=== PATIENT | female | born 1995 | race Caucasian/White ===

== ENCOUNTER 2019-05-02 23:24 | Emergency (ER) | payer BC ==
--- NOTE | 2019-05-02 23:43 | EDM.PDOC ---
<Noble Cabrera - Last Filed: 05/03/19 00:04> ED HPI GENERAL MEDICAL PROBLEM - General Chief Complaint: Respiratory Problem Stated Complaint: PT HAS PNEUMONIA Time Seen by Provider: 05/02/19 23:41 Source of Information: Reports: Patient History Limitations: Reports: No Limitations - History of Present Illness INITIAL COMMENTS - FREE TEXT/NARRATIVE: HISTORY AND PHYSICAL: History of present illness: Patient is a 24-year-old female presents to the ED with concern of fever. she states that she has been having fever for the past 3 days. She has had a cough and feels some pain in her chest.She denies nausea, vomiting, shortness of breath, abdominal pain, diarrhea, sore throat, ear pain. Review of systems: As per history of present illness and below otherwise all systems reviewed and negative. Past medical history: As per history of present illness and as reviewed below otherwise noncontributory. Surgical history: As per history of present illness and as reviewed below otherwise noncontributory. Social history: No reported history of drug or alcohol abuse. Family history: As per history of present illness and as reviewed below otherwise noncontributory. Physical exam: General: Patient sitting comfortably in no acute distress and nontoxic appearing HEENT: Atraumatic, normocephalic, pupils reactive, negative for conjunctival pallor or scleral icterus, mucous membranes moist, throat clear, neck supple, nontender, trachea midline. No meningeal signs. Lungs: Diminished throughout all lung sanchez, chest nontender. Heart: S1S2, regular, negative for clicks, rubs, or overt murmur. Abdomen: Soft, nondistended, nontender. Negative for masses or hepatosplenomegaly. Negative for costovertebral tenderness. No rigidity, rebound , guarding. Pelvis: Stable nontender. Genitourinary: Deferred. Rectal: Deferred. Extremities: Atraumatic, negative for cords or calf pain. Neurovascular unremarkable. Neuro: Awake, alert, oriented. Cranial nerves II through XII unremarkable. Cerebellum unremarkable. Motor and sensory unremarkable throughout. Exam nonfocal. Notes: Diagnostics: Chest x-ray, CBC, CMP, UA, blood culture x 2 Therapeutics: Tylenol DuoNeb Prescriptions: Impression: Plan: [] Definitive disposition and diagnosis as appropriate pending reevaluation and review of above. generalized Pain Score (Numeric/FACES): 8 - Related Data Allergies Allergy/AdvReac Type Severity Reaction Status Date / Time No Known Allergies Allergy Verified 05/02/19 23:45 Home Meds: Home Meds . [No Known Home Meds] 05/02/19 [History] Past Medical History - Past Health History Medical/Surgical History: Denies Medical/Surgical History - Past Surgical History HEENT Surgical History: Reports: Oral Surgery (wisdom teeth) Social & Family History - Family History Family Medical History: Noncontributory - Caffeine Use Caffeine Use: Reports: Soda ED ROS GENERAL - Review of Systems Review Of Systems: ROS reveals no pertinent complaints other than HPI. ED EXAM, GENERAL - Physical Exam Exam: See Below (see dictation) Course - Vital Signs Last Recorded V/S: Last Vital Signs Temp 99.7 F 05/03/19 03:05 Pulse 113 H 05/03/19 03:05 Resp 16 05/03/19 03:05 BP 111/72 05/03/19 03:05 Pulse Ox 96 05/03/19 03:05 - Orders/Labs/Meds Orders: Active Orders 24 hr Category Date Time Status RT Aerosol Therapy [RC] ASDIRECTED Care 05/02/19 23:52 Active CULTURE BLOOD [BC] Stat Lab 05/03/19 00:53 Received CULTURE BLOOD [BC] Stat Lab 05/03/19 01:02 Received CULTURE STREP A CONFIRMATION [RM] Stat Lab 05/03/19 00:16 Results STREP SCRN A RAPID W CULT CONF [RM] Stat Lab 05/03/19 00:16 Results Sodium Chloride 0.9% [Normal Saline] 1,000 ml Med 05/03/19 01:30 Active IV STAT Blood Culture x2 Reflex Set [OM.PC] Stat Oth 05/03/19 00:03 Ordered Medication Orders Sodium Chloride (Normal Saline) 1,000 mls @ 125 mls/hr IV STAT RASHAWN Last Admin: 05/03/19 01:34 Dose: 125 mls/hr Labs: Laboratory Tests 05/03/19 05/03/19 05/03/19 Range/Units 00:20 00:20 00:20 WBC 7.49 (4.0-11.0) K/uL RBC 4.69 (4.30-5.90) M/uL Hgb 14.8 (12.0-16.0) g/dL Hct 44.3 (36.0-46.0) % MCV 94.5 (80.0-98.0) fL MCH 31.6 (27.0-32.0) pg MCHC 33.4 (31.0-37.0) g/dL RDW Std Deviation 45.6 (28.0-62.0) fl RDW Coeff of Naila 13 (11.0-15.0) % Plt Count 137 L (150-400) K/uL MPV 11.20 (7.40-12.00) fL Neut % (Auto) 72.2 (48.0-80.0) % Lymph % (Auto) 17.5 (16.0-40.0) % Ray % (Auto) 10.0 (0.0-15.0) % Eos % (Auto) 0.0 (0.0-7.0) % Baso % (Auto) 0.3 (0.0-1.5) % Neut # (Auto) 5.4 (1.4-5.7) K/uL Lymph # (Auto) 1.3 (0.6-2.4) K/uL Ray # (Auto) 0.8 (0.0-0.8) K/uL Eos # (Auto) 0.0 (0.0-0.7) K/uL Baso # (Auto) 0.0 (0.0-0.1) K/uL Nucleated RBC % 0.0 /100WBC Nucleated RBCs # 0 K/uL Lactate 2.0 (0.20-2.00) mmol/L Sodium 136 (136-145) mmol/L Potassium 3.4 L (3.5-5.1) mmol/L Chloride 100 (98-107) mmol/L Carbon Dioxide 22.4 (21.0-32.0) mmol/L BUN 10 (7.0-18.0) mg/dL Creatinine 0.9 (0.6-1.0) mg/dL Est Cr Clr Drug Dosing 96.84 mL/min Estimated GFR (MDRD) > 60.0 ml/min Glucose 123 H (74-106) mg/dL Calcium 9.0 (8.5-10.1) mg/dL Total Bilirubin 0.7 (0.2-1.0) mg/dL AST 16 (15-37) IU/L ALT 17 (14-63) IU/L Alkaline Phosphatase 90 (46-116) U/L Total Protein 8.1 (6.4-8.2) g/dL Albumin 4.1 (3.4-5.0) g/dL Globulin 4.0 (2.6-4.0) g/dL Albumin/Globulin Ratio 1.0 (0.9-1.6) Urine Color Urine Appearance Urine pH (5.0-8.0) Ur Specific [place] (1.001-1.035) Urine Protein (NEGATIVE) mg/dL Urine Glucose (UA) (NEGATIVE) mg/dL Urine Ketones (NEGATIVE) mg/dL Urine Occult Blood (NEGATIVE) Urine Nitrite (NEGATIVE) Urine Bilirubin (NEGATIVE) Urine Ictotest Urine Urobilinogen (<2.0) EU/dL Ur Leukocyte Esterase (NEGATIVE) Urine RBC (0-2/HPF) Urine WBC (0-5/HPF) Ur Epithelial Cells (NONE-FEW) Amorphous Sediment (NEGATIVE) Urine Bacteria (NEGATIVE) Urine Mucus (NONE-MOD) Urine HCG, Qual (NEGATIVE) 05/03/19 05/03/19 Range/Units 00:20 00:20 WBC (4.0-11.0) K/uL RBC (4.30-5.90) M/uL Hgb (12.0-16.0) g/dL Hct (36.0-46.0) % MCV (80.0-98.0) fL MCH (27.0-32.0) pg MCHC (31.0-37.0) g/dL RDW Std Deviation (28.0-62.0) fl RDW Coeff of Naila (11.0-15.0) % Plt Count (150-400) K/uL MPV (7.40-12.00) fL Neut % (Auto) (48.0-80.0) % Lymph % (Auto) (16.0-40.0) % Ray % (Auto) (0.0-15.0) % Eos % (Auto) (0.0-7.0) % Baso % (Auto) (0.0-1.5) % Neut # (Auto) (1.4-5.7) K/uL Lymph # (Auto) (0.6-2.4) K/uL Ray # (Auto) (0.0-0.8) K/uL Eos # (Auto) (0.0-0.7) K/uL Baso # (Auto) (0.0-0.1) K/uL Nucleated RBC % /100WBC Nucleated RBCs # K/uL Lactate (0.20-2.00) mmol/L Sodium (136-145) mmol/L Potassium (3.5-5.1) mmol/L Chloride (98-107) mmol/L Carbon Dioxide (21.0-32.0) mmol/L BUN (7.0-18.0) mg/dL Creatinine (0.6-1.0) mg/dL Est Cr Clr Drug Dosing mL/min Estimated GFR (MDRD) ml/min Glucose (74-106) mg/dL Calcium (8.5-10.1) mg/dL Total Bilirubin (0.2-1.0) mg/dL AST (15-37) IU/L ALT (14-63) IU/L Alkaline Phosphatase (46-116) U/L Total Protein (6.4-8.2) g/dL Albumin (3.4-5.0) g/dL Globulin (2.6-4.0) g/dL Albumin/Globulin Ratio (0.9-1.6) Urine Color YELLOW Urine Appearance CLOUDY Urine pH 7.0 (5.0-8.0) Ur Specific [place] 1.020 (1.001-1.035) Urine Protein 30 H (NEGATIVE) mg/dL Urine Glucose (UA) NEGATIVE (NEGATIVE) mg/dL Urine Ketones 40 H (NEGATIVE) mg/dL Urine Occult Blood NEGATIVE (NEGATIVE) Urine Nitrite NEGATIVE (NEGATIVE) Urine Bilirubin SMALL H (NEGATIVE) Urine Ictotest POSITIVE Urine Urobilinogen 1.0 (<2.0) EU/dL Ur Leukocyte Esterase TRACE H (NEGATIVE) Urine RBC NONE SEEN (0-2/HPF) Urine WBC 4-6 (0-5/HPF) Ur Epithelial Cells MANY (NONE-FEW) Amorphous Sediment LIGHT (NEGATIVE) Urine Bacteria 3+ H (NEGATIVE) Urine Mucus LIGHT (NONE-MOD) Urine HCG, Qual NEGATIVE (NEGATIVE) Meds: Medications Generic Name Dose Route Start Last Admin Trade Name Freq PRN Reason Stop Dose Admin Sodium Chloride 1,000 mls @ 125 mls/hr 07/23/19 01:30 05/03/19 01:34 Normal Saline IV 125 mls/hr STAT RASHAWN Administration Discontinued Medications Generic Name Dose Route Start Last Admin Trade Name Sanaz PRIqra Reason Stop Dose Admin Acetaminophen 650 mg 05/02/19 23:52 05/03/19 00:04 Tylenol PO 05/02/19 23:53 650 mg NOW ONE Administration Albuterol/Ipratropium 3 ml 05/02/19 23:52 05/03/19 00:04 Duoneb 3.0-0.5 Mg/3 Ml NEB 05/02/19 23:53 3 ml ONETIME ONE Administration Sodium Chloride 1,000 mls @ 999 mls/hr 05/03/19 00:06 05/03/19 00:26 Normal Saline IV 05/03/19 01:06 999 mls/hr STAT ONE Administration Levofloxacin/Dextrose 750 mg/ 150 mls @ 100 mls/hr 05/03/19 01:24 05/03/19 01 :34 Premix IV 05/03/19 02:53 100 mls/hr ONETIME ONE Administration Departure - Departure Disposition: Home, Self-Care 01 Clinical Impression: UTI (urinary tract infection), Fever - Discharge Information Referrals: PCP,None [Primary Care Provider] - Forms: ED Department Discharge Additional Instructions: Dictation as prescribed Return if symptoms persist or worsen Follow-up with primary care in 2 weeks sooner as needed [facility] - [facility] [address] [place] [address] The following information is given to patients seen in the emergency department who are being discharged to home. This information is to outline your options for follow-up care. We provide all patients seen in our emergency department with a follow-up referral. The need for follow-up, as well as the timing and circumstances, are variable depending upon the specifics of your emergency department visit. If you don't have a primary care physician on staff, we will provide you with a referral. We always advise you to contact your personal physician following an emergency department visit to inform them of the circumstance of the visit and for follow-up with them and/or the need for any referrals to a consulting specialist. The emergency department will also refer you to a specialist when appropriate. This referral assures that you have the opportunity for follow-up care with a specialist. All of these measure are taken in an effort to provide you with optimal care, which includes your follow-up. Under all circumstances we always encourage you to contact your private physician who remains a resource for coordinating your care. When calling for follow-up care, please make the office aware that this follow-up is from your recent emergency room visit. If for any reason you are refused follow-up, please contact the [facility] emergency department at and asked to speak to the emergency department charge nurse. - My Orders Last 24 Hours: My Active Orders 05/03/19 00:03 Blood Culture x2 Reflex Set [OM.PC] Stat 05/03/19 00:16 CULTURE STREP A CONFIRMATION [RM] Stat STREP SCRN A RAPID W CULT CONF [RM] Stat 05/03/19 00:53 CULTURE BLOOD [BC] Stat 05/03/19 01:02 CULTURE BLOOD [BC] Stat 05/03/19 01:30 Sodium Chloride 0.9% [Normal Saline] 1,000 ml IV STAT - Assessment/Plan Last 24 Hours: My Active Orders 05/03/19 00:03 Blood Culture x2 Reflex Set [OM.PC] Stat 05/03/19 00:16 CULTURE STREP A CONFIRMATION [RM] Stat STREP SCRN A RAPID W CULT CONF [RM] Stat 05/03/19 00:53 CULTURE BLOOD [BC] Stat 05/03/19 01:02 CULTURE BLOOD [BC] Stat 05/03/19 01:30 Sodium Chloride 0.9% [Normal Saline] 1,000 ml IV STAT <Ray Ortiz - Last Filed: 05/03/19 03:38> ED HPI GENERAL MEDICAL PROBLEM - History of Present Illness INITIAL COMMENTS - FREE TEXT/NARRATIVE: Patient presents with fever as above I've seen and examined the patient HEENT grossly within normal limits Chest clear CV regular Abdomen benign Extremities four-inch motion strength 5 out of 5 no edema NET PROGRAMMER alert nonfocal Lab as below Lactic, Chest 1 view Therapeutics Levaquin 750 mg IV Levaquin 500 milligrams by mouth daily #10 no refill Impression UTI Fever resolved Tachycardia improved Definitive disposition and diagnosis as appropriate pending reevaluation and review of above l ED ROS GENERAL - Review of Systems Review Of Systems: See Below ED EXAM, GENERAL - Physical Exam Exam: See Below Departure - Departure Time of Disposition: 03:37 Condition: Good
[2019-05-02] MEDS ORDERED: Acetaminophen 325 MG Tab PO ONE (23:52)
[2019-05-02] MEDS ORDERED: Albuterol/Ipratropium 3.0-0.5 MG/3 ML Neb Soln NEB ONE (23:52)
[2019-05-03] MEDS ORDERED: Sodium Chloride 0.9% 1,000 ML IV ONE (00:06)
--- NOTE | 2019-05-03 00:14 | CR ---
INDICATION: shortness of breath. CHEST, PA AND LATERAL Upright PA and lateral radiographs of the chest were performed. Comparison: No previous studies are currently available for comparison. The lungs appear clear and there are no pleural effusions. Heart size and pulmonary vasculature appear normal. Visualized bones show no significant findings. IMPRESSION: No acute intrathoracic abnormality identified. JOSIANE SANCHEZ MD [employer] Dictated by: Herb Sanchez MD @ 05/03/2019 00:12:13 (Electronically Signed)
[2019-05-03 01:01] LABS: CHLORIDE,CL 100 mmol/L (98-107); SODIUM,NA 136 mmol/L (136-145)
[2019-05-03] MEDS ORDERED: Levofloxacin/Dextrose 5%-Water 750 MG in Premix Bag 1 BAG IV ONE (01:24)
[2019-05-03] MEDS ORDERED: Sodium Chloride 0.9% 1,000 ML IV SCH (01:30)
== END 2019-05-03 04:33 | disposition home or self-care (01) ==
LOC: MW.ED 23:24
DX: N39.0 Urinary tract infection, site not specified (principal); R00.0 Tachycardia, unspecified
CPT/HCPCS: 36415; 71046; 80053; 81001; 81025; 83605; 85025; 87040; 87081; 87804; 87880; 94640; 96361; 96365; 96366; 99284; A4217; A9270; J1956; J7040; J7620-GY

== ENCOUNTER 2022-04-16 03:39 | Inpatient (IN) | payer BC ==
[2022-04-16] MEDS ORDERED: Sodium Chloride 0.9% 10 ML Syringe FLUSH PRN (04:28)
[2022-04-16] MEDS ORDERED: Sodium Chloride 0.9% 2.5 ML Syringe FLUSH PRN (04:28)
[2022-04-16] MEDS ORDERED: Tranexamic Acid 1,000 MG in Sodium Chloride 0.9% 100 ML IV PRN (04:28)
[2022-04-16] MEDS ORDERED: Lidocaine 1% 50 ML MDV INJECT PRN (04:28)
[2022-04-16] MEDS ORDERED: Water For Irrigation,Sterile 1,000 ML Container IRR PRN (04:28)
[2022-04-16] MEDS ORDERED: Methylergonovine 0.2 MG/1 ML Amp IM PRN (04:28)
[2022-04-16] MEDS ORDERED: Carboprost Tromethamine 250 MCG/1 ML Amp IM PRN (04:28)
[2022-04-16] MEDS ORDERED: Butorphanol 1 MG/ML SDV IVPUSH PRN (04:28)
[2022-04-16] MEDS ORDERED: Misoprostol 200 MCG Tab PO PRN (04:28)
[2022-04-16] MEDS ORDERED: Sodium Chloride 0.9% 20 ML SDV IV PRN (04:28)
[2022-04-16] MEDS ORDERED: Oxytocin/0.9 % Sodium Chloride 30 UNIT/500 ML BAG IV SCH (04:30)
[2022-04-16] MEDS: Lactated Ringers 1,000 ML IV SCH ×2 (04:53→06:03)
[2022-04-16] MEDS ORDERED: fentaNYL 100 MCG/2 ML SDV ONE (05:44)
[2022-04-16] MEDS ORDERED: Lidocaine 2% with EPINEPHrine 1:200,000 20 ML SDV ONE (05:45)
[2022-04-16] MEDS ORDERED: ePHEDrine 50 MG/ML SDV IVPUSH PRN ×2 (05:57)
[2022-04-16] MEDS ORDERED: Ropivacaine HCl/PF 400 MG in Premix Bag 1 BAG EPIDUR SCH (06:00)
[2022-04-16] MEDS ORDERED: Ondansetron 4 MG/2 ML SDV IVPUSH PRN (07:43)
[2022-04-16] MEDS ORDERED: Benzocaine/Menthol 20%-0.5% Spray 78 GM Cannister TOP PRN (11:00)
[2022-04-16] MEDS ORDERED: Acetaminophen 500 MG Tab PO PRN ×2 (11:00)
[2022-04-16] MEDS ORDERED: oxyCODONE 5 MG Tab PO PRN (11:00)
[2022-04-16] MEDS ORDERED: Lanolin 100% Cream 7 GM Tube TOP PRN (11:00)
[2022-04-16] MEDS ORDERED: Witch Hazel Medicated Pads 40/Jar TOP PRN (11:00)
[2022-04-16] MEDS ORDERED: Docusate Sodium 100 MG Cap PO PRN (11:00)
[2022-04-16] MEDS ORDERED: Bisacodyl 10 MG Supp RECTAL PRN (11:00)
[2022-04-16] MEDS ORDERED: Ibuprofen 400 MG Tab PO PRN (11:00)
[2022-04-16] MEDS: Ibuprofen 800 MG Tab PO PRN ×2 (15:50→22:55)
[2022-04-17] MEDS: Ibuprofen 800 MG Tab PO PRN (08:25)
== END 2022-04-17 17:10 | disposition home or self-care (01) | DRG 560 ==
LOC: MW.OBCHECK 03:39 → MW.OB 03:41 → MW.OBCHECK 04:28 → OBSVTOIN 10:20 → MW.OB 15:22
PROVIDERS: ADMIT Obstetrics & Gynecology; ATTEND Obstetrics & Gynecology
PROC: 10E0XZZ Delivery of Products of Conception, External Approach (ICD-10-PCS; principal; 2022-04-16)
PROC: 0UQMXZZ Repair Vulva, External Approach (ICD-10-PCS; 2022-04-16)
PROC: 3E0R3BZ Introduction of Anesthetic Agent into Spinal Canal, Percutaneous Approach (ICD-10-PCS; 2022-04-16)
PROC: 00HU33Z Insertion of Infusion Device into Spinal Canal, Percutaneous Approach (ICD-10-PCS; 2022-04-16)
PROC: 10907ZC Drainage of Amniotic Fluid, Therapeutic from Products of Conception, Via Natural or Artificial Opening (ICD-10-PCS; 2022-04-16)
DX: O70.0 First degree perineal laceration during delivery (principal); Z37.0 Single live birth; Z3A.39 39 weeks gestation of pregnancy; Z20.822 Contact with and (suspected) exposure to COVID-19
CPT/HCPCS: 36415; 51702; 59025; 59409; 82803; 85014; 85018; 85027; 86592; 86850; 86900; 86901; A9270-GY; J2405; J2590; J2795; J3010; J7120; U0002